=== PATIENT | female | born 1975 | race Caucasian/White ===

== ENCOUNTER 2023-04-30 18:02 | Emergency (ER) | payer MEDICAID ==
[~2023-04-30] VITALS: Ht 160 cm; Wt 69.9 kg
[2023-04-30 18:20] VITALS: BP 109/46; PULSE 107; RESP 18; TEMP 98.6; O2SAT 96
[2023-04-30] MEDS ORDERED: KETOROLAC 30 MG/ML VIAL IM ONE (19:15)
[2023-04-30 19:32] LABS: MEAN CORPUSCULAR HEMOGLOBIN 32 pg (27-31); MEAN CORPUSCULAR HGB CONC 33 g/dL (33-37); MEAN CORPUSCULAR VOLUME 96.2 fL (80-94); RED BLOOD CELL COUNT(AUTO) 2.01 MIL/uL (4.20-5.40); RED CELL DISTRIBUTION WIDTH 16.8 % (11.6-13.7)
[2023-04-30 19:41] LABS: HEMATOCRIT 19.4 % (36-48); HEMOGLOBIN 6.3 g/dL (12.0-16.0); PLATELET COUNT (AUTO) 5 K/uL (140-450); WHITE BLOOD COUNT (AUTO) 165.6 K/uL (4.8-10.8)
[2023-04-30 19:50] LABS: ALANINE AMINOTRANSFERASE 19 U/L (12-78); ALBUMIN 3.7 g/dL (3.4-5.0); ALKALINE PHOSPHATASE 89 U/L (50-136); ANION GAP 12.9 (8-16); ASPARTATE AMINOTRANSFERASE 39 U/L (15-37); CARBON DIOXIDE 26.5 mmol/L (21-32); CHLORIDE 103 mmol/L (98-107); CREATININE 1.1 mg/dL (0.6-1.3); GFR ARICAN-AMERICAN 68 mL/min (>90); GFR NON ARICAN-AMERICAN 57 mL/min (>90); GLUCOSE 157 mg/dL (74-106); POTASSIUM 4.4 mmol/L (3.5-5.1); SODIUM SERUM 138 mmol/L (136-145); TOTAL BILIRUBIN 0.3 mg/dL (0.0-1.0); TOTAL PROTEIN, SERUM 7.4 g/dL (6.4-8.2); UREA NITROGEN, BLOOD 15 mg/dL (7-18)
[2023-04-30 20:01] LABS: LYMPHOCYTES % (MANUAL) 40 % (20-46); MONOCYTES % (MANUAL) 1 % (5-12); PLATELET ESTIMATE DECREASED; PROMYELOCYTES % 3 % (0-0)
[2023-04-30 20:02] LABS: HYPOCHROMASIA 3+
[2023-04-30] MEDS ORDERED: KETOROLAC 30 MG/ML VIAL ONE (21:07)
[2023-04-30] MEDS ORDERED: NACL 0.9% 1,000 ML IV ONE (21:25)
[2023-04-30 22:21] LABS: APPEARANCE,URINE CLEAR (CLEAR); BILIRUBIN,URINE NEGATIVE (NEGATIVE); BLOOD, URINE NEGATIVE (NEGATIVE); COLOR,URINE YELLOW (YELLOW); LEUKOCYTE ESTERASE ,URINE 1+ (NEGATIVE); NITRITE, URINE POSITIVE (NEGATIVE); PH,URINE 6.5 (5.0-9.0); PROTEIN,URINE NEGATIVE (NEGATIVE); UGLUCOSE NEGATIVE (NEGATIVE); UROBILINOGEN,URINE 0.2 EU/dL (0.2 - 1)
[2023-04-30 22:25] LABS: MAGNESIUM 2.1 mg/dL (1.8-2.4); PHOSPHORUS 4.2 mg/dL (2.5-4.9)
[2023-04-30 22:31] LABS: LACTIC ACID 1.2 mmol/L (0.4-2.0)
[2023-04-30 22:33] LABS: INR 0.94 (0.8-1.2); PARTIAL THROMBOPLASTIN TIME 22.5 secs (22-35.6); PROTHROMBIN TIME 9.9 secs (10.8-13.4)
[2023-04-30 22:36] LABS: BACTERIA,URINE 3+ /HPF (None Seen); RBC,URINE NONE SEEN /HPF (0-5); SQUAMOUS EPITHELIAL CELL,UR 4-10 (MOD) /LPF (0-3 (FEW))
[2023-04-30] MEDS ORDERED: LEVOFLOXACIN 750 MG/D5W PREMIX 150 ML IV ONE (22:40)
[2023-05-01] MEDS ORDERED: NACL 0.9% 1,000 ML IV ONE (08:30)
[2023-05-01 09:42] LABS: URIC ACID 9.1 mg/dL (2.6-7.2)
[2023-05-01 10:43] VITALS: BP 121/58; PULSE 99; RESP 16; TEMP 99.1; O2SAT 97
== END 2023-05-01 10:43 | disposition short-term general hospital (02) ==
LOC: MED 18:02
DX: S09.90XA Unspecified injury of head, initial encounter (principal); D72.829 Elevated white blood cell count, unspecified; D69.6 Thrombocytopenia, unspecified; D64.9 Anemia, unspecified; E03.9 Hypothyroidism, unspecified; W18.30XA Fall on same level, unspecified, initial encounter; Y93.89 Activity, other specified; Y92.89 Other specified places as the place of occurrence of the external cause; Y99.8 Other external cause status
CPT/HCPCS: 36415; 71045; 80053; 81001; 81025; 83010; 83605; 83615; 83735; 84100; 84484; 84550; 85025; 85045; 85379; 85384; 85610; 85651; 85730; 86140; 86886; 86900; 86901; 87040; 87086; 93005; 96361; 96365; 96372; 99291; J1885; J1956; J7030; 99285